=== PATIENT | female | born 1945 | race Caucasian/White ===

== ENCOUNTER 2020-01-07 10:29 | Outpatient (CLI) | payer MEDICARE, MEDICAID, SELFPAY ==
--- NOTE | ~2020-01-07 | MM_ITS ---
EXAMINATION: MM screening [facility] BI w daniel HISTORY: Screening mammogram TECHNIQUE: Craniocaudal and mediolateral oblique 3-D tomosynthesis images were obtained and synthetic 2-D images were generated. CAD analysis was submitted and interpreted. COMPARISON: 01/02/2019, 12/15/2017, 12/05/2016 BREAST PARENCHYMAL COMPOSITION: The breasts are heterogeneously dense, which may obscure small masses . FINDINGS: Scattered benign-appearing calcifications are present. There is no evidence of suspicious m ass, calcification, or architectural distortion to suggest malignancy in either breast. There has bee n no suspicious interval change. IMPRESSION: 1. No mammographic evidence of malignancy. 2. Recommend routine screening mammography in one year. BI-RADS Category 2: Benign finding(s). Reviewed, dictated and finalized at location A.
== END 2020-01-07 10:30 | disposition home or self-care (01) ==
PROVIDERS: PCP Family Medicine; Visit Provider Family Medicine
DX: Z12.31 Encounter for screening mammogram for malignant neoplasm of breast (principal)
CPT/HCPCS: 77063; 77067

== ENCOUNTER 2020-01-31 10:58 | Emergency (ER) | payer MEDICARE, MEDICAID, SELFPAY ==
--- NOTE | ~2020-01-31 | XR_ITS ---
EXAMINATION: XR chest 1V portable INDICATION: Right hemiparesis, confusion, nausea and vomiting TECHNIQUE: Portable AP chest at 1138 hours COMPARISON: None available FINDINGS: The lungs are hyperinflated but free of acute opacities. There is no pleural effusion or pn eumothorax. The heart size is normal. Calcified atherosclerosis is noted. 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 IMPRESSION: 1. Hyperinflation without acute cardiopulmonary abnormality. Reviewed, dictated and finalized at location B.
--- NOTE | ~2020-01-31 | CT_ITS ---
EXAMINATION: CT brain wo con INDICATION: Right-sided hemiparesis COMPARISON: None TECHNIQUE: Standard unenhanced head CT. The dose-length product (DLP) was 605.33 mGy-cm. The mA was a djusted according to patient size. Iterative reconstruction technique was employed. FINDINGS: There is no acute intraparenchymal hemorrhage. No evidence of mass lesion. No evidence of a cute infarction. There is mild periventricular and subcortical hypodensity probably related to small vessel ischemic disease. There is mild prominence of the sulci and ventricles related to cerebral atr ophy. Intracranial calcified cerebral atherosclerosis is noted. There are no extra-axial collections. There is no mass effect or midline shift. The orbits and soft tissues are unremarkable. The visuali zed sinuses and mastoid air cells are well aerated. IMPRESSION: 1. No acute intracranial abnormality. 2. Age related findings. Reviewed, dictated and finalized at location B.
[2020-01-31 11:02] VITALS: BP 213/101; PULSE 82; RESP 16; TEMP 37.1; O2SAT 95
--- NOTE | 2020-01-31 11:03 | ECG_ITS ---
Measurements Intervals [place] Rate: 72 P: 70 OH: 155 QRS: 30 QRSD: 96 T: 70 QT: 415 QTc: 457 Interpretive Statements SINUS RHYTHM NONSPECIFIC ST & T-WAVE ABNORMALITY- ANTEROLAT/HIGH LAT LEADS BASELINE WANDER- V2-V5 BORDERLINE ECG Electronically Signed On 01-31-2020 11:22:07 CDT by Jason Silverman D.O.
--- NOTE | 2020-01-31 11:14 | ED.WEAKNESS ---
HPI - Weakness General Chief complaint: Suspected CVA Stated complaint: Ambulance Time Seen by Provider: 01/31/20 10:58 Source: patient Mode of arrival: EMS Limitations: no limitations History of Present Illness HPI Narrative: 74-year-old woman brought to the emergency department by EMS today with a complaint of weakness on her right side. She states that her symptoms started 2 days ago. She was sitting when her symptoms started. She states that she has been crawling to the bathroom in the kitchen in order to get something to drink and relieve herself. She denies numbness, tingling, chest pain, shortness breath, headache or head injuries. She takes no prescription medications. MD Complaint: focal weakness Onset (ago): day(s) (2) Duration: constant Location: RUE and RLE Migration: none Severity: severe Relieving factors: none Exacerbating factors: none Related Data Home Medications Medication Instructions Recorded Confirmed calcium carbonate 600 mg (1,500 2 tablet PO DAILY tablet 12/31/19 01/31/20 mg)-vitamin D3 400 unit tablet Allergies Allergy/AdvReac Type Severity Reaction Status Date / Time No Known Allergies Allergy Verified 01/01/20 10:33 Review of Systems Constitutional: Constitutional: Denies chills and Denies fever(s) Eyes: Eyes: Denies change in vision and Denies photophobia ENT: Denies dysphagia, Denies nasal congestion and Denies sore throat Cardiovascular: Cardiovascular: Denies chest pain, Denies rapid heart rate, Denies radiating jaw, neck or arm pain and Denies slow heart rate Respiratory: Respiratory: Denies cough, Denies dyspnea and Denies wheezing Gastrointestinal: Gastrointestinal: Denies abdominal pain, Denies diarrhea, Denies nausea and Denies vomiting Genitourinary: Genitourinary: Denies nocturia and Denies dysuria Musculoskeletal: Musculoskeletal: Denies back pain, Denies arthralgias and Denies joint swelling Integumentary/Breasts: Skin/Breast: Denies pruritus, Denies erythema and Denies rash Neurologic: Denies vertigo, Denies dizziness, Denies syncope, Denies headache(s), Reports focal weakness and Denies numbness Endocrine: Endocrine: Denies excessive sweating, Denies polydipsia and Denies polyuria Hematologic/Lymphatic: Hematologic/Lymphatic: Denies easy bleeding and Denies easy bruising Allergic/Immunologic: Allergic/Immunologic: Denies lip swelling, Denies tongue swelling and Denies wheezing PMFSH Past Medical History Medical History Osteoporosis Surgical History Surgical History Hx of cataract surgery Hx of hysterectomy Social History Social History Smoking packs per day: 1 Smoking cigarettes per day: 20.0 Years smoked: 32 Smoking pack-years: 32.00 Smoking status: Former smoker Smoking end date: 06/26/91 Exam Const: General: healthy appearing, no acute distress and alert Nutritional Appearance: well nourished Orientation/consciousness: patient oriented x3 HENMT: Head: normal to inspection Ears: external ears normal, TM's normal bilaterally and EAC's normal General nose exam: Normal nares present Mouth: Yes moist mucous membranes Throat: posterior oropharynx normal Eyes: Conjunctivae: conjunctivae normal Pupils: Equal, round and reactive pupils present EOM: EOMs intact bilaterally Neck: Neck: normal visual inspection and no lymphadenopathy Resp: Effort & Inspection: normal respiratory effort and not labored Auscultation: clear to auscultation bilaterally, no rales, no rhonchi and no wheezes Cardio: Rate: abnormal rate Rhythm: abnormal rhythm GI: Inspection: non-distended GI Palp: Yes Soft to palpation, No Tenderness to palpation present (GI), No Guarding due to palpation present (GI), No Rigid due to palpation and No Palpable mass present Percussion: Yes normal to pe
[2020-01-31 11:43] LABS: Glucose Point of Care 95 (65-105)
[2020-01-31 11:56] LABS: Basophils Absolute Auto 0.04 K/mm3 (0.00-0.10); Basophils Percent Auto 0.5 % (0.0-1.0); Eosinophils Absolute Auto 0.01 K/mm3 (0.02-0.50); Eosinophils Percent Auto 0.1 % (1.0-6.0); Hematocrit 43.3 % (35.0-42.0); Hemoglobin 14.8 g/dL (11.7-13.8); Immature Granulocyte Absolute 0.02 K/mm3 (0.00-0.00); Immature Granulocyte Percent A 0.2 % (0.0-0.0); Lymphocytes Percent Auto 13.6 % (18.0-42.0); Mean Corpuscular HGB Conc 34.2 g/dL (32.0-36.0); Mean Corpuscular Hemoglobin 29.7 pg (27.0-31.0); Mean Corpuscular Volume 86.8 fL (78.0-102.0); Mean Platelet Volume 8.5 fl (9.2-11.8); Monocytes Absolute Auto 0.62 K/mm3 (0.10-0.90); Monocytes Percent Auto 7.7 % (2.0-11.0); Neutrophils Absolute Auto 6.3 K/mm3 (1.7-7.2); Neutrophils Percent Auto 77.9 % (50.0-70.0); Platelet Count Result 224 K/mm3 (150-420); Red Blood Count 4.99 M/mm3 (4.20-5.40); Red Cell Distribution Width 12.7 % (11.6-14.4); White Blood Count 8.1 K/mm3 (4.8-10.8)
[2020-01-31 12:00] VITALS: BP 169/94; PULSE 78; RESP 20; O2SAT 97
[2020-01-31 12:00] LABS: Add Urine Microscopic? YES; Appearance Urine Clear (Clear); Bilirubin Urine Negative (Negative); Blood Urine 2+ (Negative); Color Urine Yellow (Yellow); Glucose Urine UA Negative (Negative); Ketones Urine 1+ (Negative); Leukocyte Esterase Ur Negative LEU/UL (Negative); Nitrate Urine Negative (Negative); Protein Urine 1+ (Negative); Urobilinogen Urine 0.2 mg/dL (0.2-1.0)
[2020-01-31 12:08] LABS: Bacteria Urine 1+ /hpf; Squamous Epithelial Cell Urine Few /hpf (Few); WBC Urine None seen /hpf (0-3)
[2020-01-31 12:11] LABS: Amphetamine Screen Urine Negative (Negative); Barbiturate Screen Urine Negative (Negative); Benzodiazepines Screen Urine Negative (Negative); Cannabinoid Screen Urine Negative (Negative); Cocaine Screen Urine Negative (Negative); Methadone Screen Urine Negative (Negative); Opiate Screen Urine Negative (Negative); Phencyclidine Screen Urine Negative (Negative)
[2020-01-31 12:17] LABS: Alanine Aminotransferase 17 U/L (14-59); Albumin Level 3.8 g/dL (3.4-5.0); Alkaline Phosphatase 64 U/L (46-116); Anion Gap 15.3 mmol/L (7-16); Aspartate Amino Transferase 17 U/L (15-37); Bilirubin,Total 0.9 mg/dL (0.00-1.00); Blood Urea Nitrogen 9 mg/dL (7-18); Carbon Dioxide 24 mmol/L (21-32); Chloride 102 mmol/L (98-108); Estimated CRCL calculation 44 ml/min; Estimated Glomerular Filt Rate > 60; Glucose 106 mg/dL (70-99); Osmolality Calculated 284 mOsm/kg (285-295); Potassium 3.3 mmol/L (3.5-5.1); Sodium 138 mmol/L (136-145); Total Protein 7.7 g/dL (6.4-8.2)
[2020-01-31 12:18] LABS: Ethanol < 3 mg/dL (0-6); Troponin I < 0.02 ng/mL (0.00-0.056)
[2020-01-31 12:19] LABS: Creatine Kinase 124 U/L (26-192)
[2020-01-31 12:23] LABS: Partial Thromboplastin Time 28.8 SEC (22.3-31.6)
--- NOTE | 2020-01-31 12:41 | PC.NURSE ---
Pt requests [facility] for transfer. [facility] contacted.
[2020-01-31] MEDS: SODIUM CHLORIDE 0.9% IV 500 ML 999 ML IV CONT (13:10)
[2020-01-31] MEDS: ONDANSETRON INJ 4 MG/2 ML VIAL IV PUSH (13:18)
--- NOTE | 2020-01-31 13:27 | PC.NURSE ---
Pt asked multiple times if she would like this RN to contact her family. pt declines and states that she will call her daughter when she gets to [place].
--- NOTE | 2020-01-31 13:30 | PC.NURSE ---
Dr. Cerda accepts pt, awaiting bed assignment. pt aware.
[2020-01-31 13:49] VITALS: BP 148/84; PULSE 80; RESP 16; O2SAT 95
--- NOTE | 2020-01-31 14:35 | PC.NURSE ---
[facility] contacted for transfer
[2020-01-31 14:38] VITALS: BP 140/69; PULSE 88; RESP 18; O2SAT 95
[2020-01-31 15:02] VITALS: BP 146/90; PULSE 77; RESP 18; O2SAT 95
== END 2020-01-31 15:24 | disposition short-term general hospital (02) ==
PROVIDERS: Emergency Provider Emergency Medicine
DX: I63.9 Cerebral infarction, unspecified (principal); Z87.891 Personal history of nicotine dependence; M81.0 Age-related osteoporosis without current pathological fracture
CPT/HCPCS: 36415; 70450; 71045; 80053; 80307; 81001; 82550; 82948; 84484; 85025; 85610; 85730; 93005; 96374; 99285; J2405; J7040

== ENCOUNTER 2020-02-28 15:05 | Inpatient (IN) | payer MEDICARE, MEDICAID, SELFPAY ==
--- NOTE | ~2020-02-28 | XR_ITS ---
EXAMINATION: XR barium swallow modified DATE: 03/06/2020 10:44 INDICATION: CVA with difficulty swallowing TECHNIQUE: Modified barium esophagram was performed by myself to administered fluoroscopy, in conjun ction with speech pathologist who administered barium in varying consistencies as per speech patholog ist documentation. This was recorded on tape. A single fluoroscopic spot image was recorded. The DAP for this procedure was 0.871 Gycm2. Fluoroscopy exposure time was 1.5 minutes. FINDINGS: Oral stage: Adequate function. Pharyngeal phase: Adequate function. Laryngeal penetration: Penetration with camille cracker. Aspiration: None. Laryngeal sensitivity: Present. IMPRESSION: Laryngeal penetration with camille cracker. Please refer to speech pathologist findings a nd specific feeding recommendations. Reviewed, dictated and finalized at location B. IMPRESSION: Laryngeal penetration with camille cracker. Please refer to speech pathologist findings and specific feeding recommendations.
[2020-02-28 15:15] VITALS: BP 146/65; PULSE 68; RESP 18; TEMP 36.6; O2SAT 97; BMI 19.9
--- NOTE | 2020-02-28 15:15 | ADMGEN ---
This patient, Fannie Izquierdo, was admitted to 2nd Floor Room 203-2. Patient/family oriented to hospital policies and general routines including ID bracelet, bed and alarms, visiting hours, pain management, procedures, bathroom and other care routines, personal items, smoking policy, room service/diet, and visiting hours. Valuables list has been completed. Information on how to activate the Rapid Response Team has been discussed. Patient/Family are encouraged to report perceived risks to care and to ask questions if they do not understand what they are told or what they should do.
[2020-02-28 16:57] LABS: Hematocrit 37.8 % (35.0-42.0); Hemoglobin 12.1 g/dL (11.7-13.8); Mean Corpuscular Hemoglobin 29.4 pg (27.0-31.0); Mean Corpuscular Volume 91.7 fL (78.0-102.0); Mean Platelet Volume 8.5 fl (9.2-11.8); Platelet Count Result 298 K/mm3 (150-420); Red Blood Count 4.12 M/mm3 (4.20-5.40); Red Cell Distribution Width 13.9 % (11.6-14.4); White Blood Count 8.2 K/mm3 (4.8-10.8)
[2020-02-28 16:58] LABS: Alanine Aminotransferase 27 U/L (14-59); Albumin Level 3.3 g/dL (3.4-5.0); Alkaline Phosphatase 75 U/L (46-116); Anion Gap 5 mmol/L (8-16); Aspartate Amino Transferase 20 U/L (15-37); Bilirubin,Total 0.5 mg/dL (0.00-1.00); Blood Urea Nitrogen 26 mg/dL (7-18); Calcium 9.5 mg/dL (8.5-10.1); Carbon Dioxide 29 mmol/L (21-32); Chloride 104 mmol/L (98-108); Estimated CRCL calculation 40 ml/min; Estimated Glomerular Filt Rate > 60; Glucose 104 mg/dL (70-99); Osmolality Calculated 290 mOsm/kg (285-295); Potassium 3.9 mmol/L (3.5-5.1); Sodium 138 mmol/L (136-145); Total Protein 7.4 g/dL (6.4-8.2)
[2020-02-29] VITALS: BP 130/72; PULSE 72; RESP 20; TEMP 36.6; O2SAT 94
--- NOTE | 2020-02-29 07:40 | PM.IMHP ---
H&P: HPI History of Present Illness Date/Time: 02/29/20 07:40 Chief complaint: Rehab Narrative: Fannie Izquierdo is a 74 year old female.She was admitted to [facility] on 01/31/2020 symptoms started 2 days prior. patient presented at that time with right-sided weakness hemiparesis evaluation show left pontine area infarct. Patient was put on PT OT and ST. Patient is now transferred to this facility for rehabilitation of the CVA were she will continue to receive work with PT OT and ST. Review of Systems Review of Systems: Narrative: Patient states she is able to eat and swallow well and that she has not been choking or gagging on her food. Patient explains that she does have a right arm weakness and right leg weakness. Patient has no complaints for the following: Visual disturbances, hearing disturbances, no shortness of breath no increased work of breathing, no chest pain, no abdominal problems, no numbness or tingling. Patient also states she is having no pain at this time. Cardiovascular: Cardiovascular: Denies chest pain, Denies lightheadedness and Denies dyspnea Respiratory: Respiratory: Denies excessive phlegm production, Denies pain on inspiration, Denies pain with cough and Denies dyspnea Gastrointestinal: Gastrointestinal: Denies abdominal pain, Denies nausea and Denies vomiting Musculoskeletal: Comments: As noted above. Neurologic: Denies confusion, Denies dizziness, Denies headache(s) and Reports focal weakness (As noted above.) [facility] Past Medical History Medical History (Updated 02/29/20 @ 11:20 by CYNTHIA Dougherty) CVA (cerebral vascular accident) Hyperlipidemia Hypertension Osteoporosis Surgical History Surgical History Hx of cataract surgery Hx of hysterectomy Social History Social History Smoking packs per day: 0.25 Smoking cigarettes per day: 5.0 Years smoked: 30 Smoking pack-years: 7.50 Smoking status: Former smoker Tobacco type: cigarettes Smoking end date: 06/26/91 Alcohol intake: never Substance use: never Gender identity (if verbalized by the patient): Female Sexual Orientation (if Verbalized by the Patient): Straight or Heterosexual Spiritual care concerns: No Meds Home Medications and Allergies Home Medications Medication Instructions Recorded Confirmed Type acetaminophen 650 mg PO Q4H PRN 02/28/20 02/28/20 History alendronate 10 mg PO QAM 02/28/20 02/28/20 History amlodipine 2.5 mg PO DAILY 02/28/20 02/28/20 History aspirin 325 mg PO DAILY 02/28/20 02/28/20 History atorvastatin 40 mg PO HS 02/28/20 02/28/20 History bisacodyl 10 mg [place] QPM PRN 02/28/20 02/28/20 History polyethylene glycol 3350 17 g PO DAILY PRN 02/28/20 02/28/20 History sennosides-docusate sodium [Senna 2 tab-cap PO HS 02/28/20 02/28/20 History with Docusate Sodium] Allergies Allergy/AdvReac Type Severity Reaction Status Date / Time No Known Allergies Allergy Verified 01/01/20 10:33 Vital Signs Vital Signs - 24 hr 02/28/20 15:15 02/29/20 00:00 Temperature 98 F 98 F Pulse Rate 68 72 Respiratory Rate 18 20 Blood Pressure 146/65 H 130/72 Pulse Oximetry 97 94 Exam Const: General: cooperative, healthy appearing, comfortable and no acute distress Nutritional Appearance: thin Orientation/consciousness: oriented to person, oriented to place and oriented to time (And events. ) HENMT: Head: other (No facial droop, speech is clear. ) Resp: Effort & Inspection: normal respiratory effort, Actively coughing (has a bit of a weak cough.), no respiratory distress and no retractions Auscultation: rales (in the bases posteriorly with Rt > Lt. ) Cardio: Rate: regular rate Rhythm: regular rhythm Heart sounds: S1 normal heart sound present and S2 normal heart sound present GI: Inspection: non-distended GI Palp: No abdominal tenderness and Yes Soft to pa
[2020-02-29 08:00] VITALS: BP 119/67; PULSE 68; RESP 18; TEMP 36.5; O2SAT 97
[2020-02-29] MEDS: amLODIPine BESYLATE 5 MG TABLET 2.5 MG PO (08:59)
[2020-02-29] MEDS: ASPIRIN 325 MG ENTERIC TABLET PO (08:59)
[2020-02-29] MEDS: ENOXAPARIN 40 MG/0.4 ML SYRINGE SUB-Q (12:49)
[2020-02-29 15:23] VITALS: BP 146/72; PULSE 73; RESP 18; TEMP 37.3; O2SAT 94
--- NOTE | 2020-02-29 15:25 | PC.NURSE ---
Denies needs, patient put on splint on right wrist/hand, keeping blankets behind right foot to prevent drop until she can get a brace for her foot as recommended by PT dept, call light in reach
--- NOTE | 2020-02-29 17:30 | PC.NURSE ---
Up from chair with use of gait belt and walker, tolerated well, back to bed, side rails up and call light inr each of patient
--- NOTE | 2020-02-29 18:16 | PC.NURSE ---
Up to commode with SBA, tolerated well, back to bed
--- NOTE | 2020-02-29 19:26 | PM.IMHP ---
H&P: HPI History of Present Illness Date/Time: 02/29/20 19:26 Chief complaint: Rehab Narrative: Fannie Izquierdo is a 74 year old female admitted to our rehab/swing center after she was at [facility] early January for a right-sided weakness which was diagnosed with with CVA involving the amirah norberto area. The patient had right-sided weakness status post CVA. Patient admitted to our hospital with some PT/OT/ speech therapy ordered. Patient has a history of hypertension, hyperlipidemia, osteoporosis. Currently on honey thickened liquids and will need a modified barium swallow for swallow evaluation. Review of Systems Review of Systems: All systems reviewed & are unremarkable except as noted in HPI and below PMFSH Past Medical History Medical History CVA (cerebral vascular accident) Hyperlipidemia Hypertension Osteoporosis Surgical History Surgical History Hx of cataract surgery Hx of hysterectomy Family History Family History Father Family history of dementia Social History Social History Smoking packs per day: 0.25 Smoking cigarettes per day: 5.0 Years smoked: 30 Smoking pack-years: 7.50 Smoking status: Former smoker Tobacco type: cigarettes Smoking end date: 06/26/91 Alcohol intake: never Substance use: never Gender identity (if verbalized by the patient): Female Sexual Orientation (if Verbalized by the Patient): Straight or Heterosexual Spiritual care concerns: No Meds Home Medications and Allergies Home Medications Medication Instructions Recorded Confirmed Type acetaminophen 650 mg PO Q4H PRN 02/28/20 02/28/20 History alendronate 10 mg PO QAM 02/28/20 02/28/20 History amlodipine 2.5 mg PO DAILY 02/28/20 02/28/20 History aspirin 325 mg PO DAILY 02/28/20 02/28/20 History atorvastatin 40 mg PO HS 02/28/20 02/28/20 History bisacodyl 10 mg [place] QPM PRN 02/28/20 02/28/20 History polyethylene glycol 3350 17 g PO DAILY PRN 02/28/20 02/28/20 History sennosides-docusate sodium [Senna 2 tab-cap PO HS 02/28/20 02/28/20 History with Docusate Sodium] Allergies Allergy/AdvReac Type Severity Reaction Status Date / Time No Known Allergies Allergy Verified 01/01/20 10:33 Vital Signs Vital Signs - 24 hr 02/29/20 00:00 02/29/20 08:00 02/29/20 15:23 Temperature 36.6 C 36.5 C 37.3 C Pulse Rate 72 68 73 Respiratory Rate 20 18 18 Blood Pressure 130/72 119/67 146/72 H Pulse Oximetry 94 97 94 Exam Const: General: comfortable and no acute distress HENMT: Ears: TM's normal bilaterally Eyes: General: appearance normal, both eyes and all related structures Neck: Neck: supple and no JVD Thyroid: thyroid normal Resp: Effort & Inspection: normal respiratory effort Auscultation: clear to auscultation bilaterally Cardio: Rate: regular rate Rhythm: regular rhythm Skin: General skin exam: normal color and no rashes or lesions noted Neuro: Cognition (Neuro): normal cognition Speech: normal speech Motor exam (neuro): Normal motor muscle tone present throughout Other: Weakness right-sided Extrem: General: normal to inspection Left upper extremity: normal to inspection Right lower extremity: normal to inspection Left lower extremity: normal to inspection
[2020-02-29] MEDS: ATORVASTATIN 40 MG TABLET PO (21:04)
[2020-02-29] MEDS: SENNA/DOCUSATE SODIUM TABLET 2 TAB PO (21:04)
--- NOTE | 2020-02-29 21:20 | PC.NURSE ---
thickened liquid continue, continue to observe for aspiration precautions.
[2020-03-01] VITALS: BP 127/60; PULSE 71; RESP 12; TEMP 36.8; O2SAT 94
[2020-03-01 08:00] VITALS: BP 140/59; PULSE 64; RESP 18; TEMP 36.7; O2SAT 96
[2020-03-01] MEDS: ENOXAPARIN 40 MG/0.4 ML SYRINGE SUB-Q (08:49)
[2020-03-01] MEDS: ALENDRONATE SODIUM 70 MG TABLET PO (08:49)
[2020-03-01] MEDS: amLODIPine BESYLATE 5 MG TABLET 2.5 MG PO (08:49)
[2020-03-01] MEDS: ASPIRIN 325 MG ENTERIC TABLET PO (08:49)
[2020-03-01 16:00] VITALS: BP 130/63; PULSE 66; RESP 18; TEMP 36.7; O2SAT 97
[2020-03-01] MEDS: SENNA/DOCUSATE SODIUM TABLET 2 TAB PO (19:59)
[2020-03-01] MEDS: ATORVASTATIN 40 MG TABLET PO (19:59)
[2020-03-02] VITALS: BP 133/66; PULSE 66; RESP 16; TEMP 36.6; O2SAT 94
[2020-03-02 07:25] VITALS: BP 175/61; PULSE 66; RESP 18; TEMP 36.8; O2SAT 97
[2020-03-02] MEDS: ASPIRIN 325 MG ENTERIC TABLET PO (09:40)
[2020-03-02] MEDS: ENOXAPARIN 40 MG/0.4 ML SYRINGE SUB-Q (09:40)
[2020-03-02] MEDS: amLODIPine BESYLATE 5 MG TABLET 2.5 MG PO (09:40)
--- NOTE | 2020-03-02 11:24 | WPDPN ---
Progress Note: A&P Assessment and Plan (1) CVA (cerebrovascular accident): Qualifiers: CVA mechanism: unspecified Qualified Code(s): I63.9 - Cerebral infarction, unspecified <SHAMEKA Perez - Last Filed: 03/02/20 11:47> Code(s): I63.9 - Cerebral infarction, unspecified <Jessica Najera SHAMEKA - Last Filed: 03/02/20 11:47> Status: Acute <SHAMEKA Perez - Last Filed: 03/02/20 11:47> Assessment and Plan: No acute intracranial abnormality.01/31/20 ekg SR 72 DC lovneox continue plavix 75 mg daily,ASA 365 mg daily, atorvastatin 40mg daily Continue nectar thick liquid MBS ordered and pending Continue physical therapy and Occupational Therapy <Jessica Najera SHAMEKA - Last Filed: 03/02/20 11:47> (2) Hypertension: Code(s): I10 - Essential (primary) hypertension <Jessica Najera SHAMEKA - Last Filed: 03/02/20 11:47> Status: Acute <Jessica Najera SHAMEKA - Last Filed: 03/02/20 11:47> Assessment and Plan: ? Patient blood pressure 175/61 one-time occurrence we will continue to monitor and adjust as needed ? VS as ordered ? Will adjust medication as needed. Continue amlodipine <Jessica Najera SHAMEKA - Last Filed: 03/02/20 11:47> (3) Hyperlipidemia: Code(s): E78.5 - Hyperlipidemia, unspecified <Jessica Najera SHAMEKA - Last Filed: 03/02/20 11:47> Status: Acute <Jessica Najera SHAMEKA - Last Filed: 03/02/20 11:47> Assessment and Plan: Continue statins <Jessica Najera SARAMina - Last Filed: 03/02/20 11:47> (4) Rhonchi at both lung bases: Code(s): R09.89 - Other specified symptoms and signs involving the circulatory and respiratory systems <Jessica CastañedaHeather Najera SARAMina - Last Filed: 03/02/20 11:47> Status: Acute <SHAMEKA Perez - Last Filed: 03/02/20 11:47> Assessment and Plan: Improved Continue acapella Continue as needed oxygen Will continue to monitor <SHAMEKA Perez - Last Filed: 03/02/20 11:47> (5) Weakness: Code(s): R53.1 - Weakness <SHAMEKA Perez Last Filed: 03/02/20 11:47> Status: Acute <SHAMEKA Perez - Last Filed: 03/02/20 11:47> Assessment and Plan: ? Exhibit tolerance during physical activity as evidenced by a normal fluctuation of vital signs during physical activity. ? Patient will be ability to perform required activities of daily living. ? Provide appropriate nutrition for healing and strength. ? Use appropriate to prevent falls. ? Continue physical therapy/occupational therapy. <SHAMEKA Perez - Last Filed: 03/02/20 11:47> Review of Systems Review of Systems: Narrative: CONSTITUTIONAL: Denies fever, chills, sweats. EYES: Denies visual changes, redness, discharge. ENT: Denies rhinorrhea, congestion, sore throat, otalgia. CARDIOVASCULAR: Denies chest pain, palpitations, edema. RESPIRATORY: Denies dyspnea, wheezing, cough GASTROINTESTINAL: Denies abdominal pain, nausea, vomiting, diarrhea. GENITOURINARY: Denies dysuria, hematuria, abnormal discharge SKIN: Denies rash or itching. MUSCULOSKELETAL: Denies acute back pain, or myalgia. Left arm pain NEUROLOGIC: Left-sided weakness PSYCHIATRIC: Denies anxiety or depression. <SHAMEKA Perez - Last Filed: 03/02/20 11:47> Exam Narrative: Exam Narrative: GENERAL: This is a well-nourished, well-developed patient, in no apparent distress. HEAD: normocephalic, atraumatic. EYES: PERRL. Sclera clear/white. Vision is grossly intact. EARS: External ears normal, auditory canals clear and without drainage, TMs normal without perforation. Hearing grossly intact. NOSE: External nose normal with no obvious nasal discharge, nares without redness, no rhinorrhea. THROAT: Mucous membranes moist, posterior pharynx clear. NECK: Neck supple, non-tender without lymphadenopathy, masses or thyromegaly.
[2020-03-02 12:09] VITALS: PULSE 74
--- NOTE | 2020-03-02 14:30 | PC.NURSE ---
Patient resting in bed with hob elevated. Call light and belongings at side. Denies any needs at this time.
[2020-03-02 15:45] VITALS: BP 122/68; PULSE 74; RESP 18; TEMP 37; O2SAT 95
[2020-03-02] MEDS: DOCUSATE SODIUM 100 MG CAPSULE PO (16:40)
--- NOTE | 2020-03-02 18:20 | PC.NURSE ---
Patient resting in bed with hob elevated. Call light provided.
[2020-03-02] MEDS: ATORVASTATIN 40 MG TABLET PO (20:43)
[2020-03-02] MEDS: SENNA/DOCUSATE SODIUM TABLET 2 TAB PO (20:43)
[2020-03-03] VITALS: BP 133/74; PULSE 74; RESP 18; TEMP 36.7; O2SAT 98
[2020-03-03 07:20] VITALS: BP 126/77; PULSE 74; RESP 18; TEMP 36.6; O2SAT 95
[2020-03-03] MEDS: amLODIPine BESYLATE 5 MG TABLET 2.5 MG PO (10:02)
[2020-03-03] MEDS: ASPIRIN 325 MG ENTERIC TABLET PO (10:02)
[2020-03-03] MEDS: CLOPIDOGREL BISULFATE 75 MG TABLET PO (10:02)
[2020-03-03] MEDS: DOCUSATE SODIUM 100 MG CAPSULE PO ×2 (10:02→17:10)
--- NOTE | 2020-03-03 15:28 | PCRCNOTE ---
Instructed patient in use and purpose of Flutter Valve. Patient very receptive. Able to demonstrate & perform procedure without difficulty. Breath Sounds with bibasilar crackles, more pronounced in RLL. Patient performed 5-10 respiratory cycles using the Flutter Valve appropriately. Non- productive cough. Good cough effort. Patient states she is now using thickening product for liquids.
[2020-03-03 15:45] VITALS: BP 122/73; PULSE 78; RESP 18; TEMP 37.1; O2SAT 95
[2020-03-03] MEDS: polyethylene glycoL 3350 17 GM POWD.PACK PO (16:00)
--- NOTE | 2020-03-03 18:10 | PC.NURSE ---
Patient resting in bed with hob elevated. Denies any needs. Call light and belongings in reach.
[2020-03-03] MEDS: SENNA/DOCUSATE SODIUM TABLET 2 TAB PO (20:05)
[2020-03-03] MEDS: ATORVASTATIN 40 MG TABLET PO (20:05)
[2020-03-03] MEDS: BISACODYL 10 MG SUPPOSITORY RECTAL (20:06)
[2020-03-03 23:50] VITALS: BP 128/68; PULSE 76; RESP 18; TEMP 36.8; O2SAT 94
--- NOTE | 2020-03-04 02:31 | PC.NURSE ---
Addendum entered by Deborah Saeed RN 03/04/20 02:32: no evidence of distress noted at this time Original Note: pt sleeping, no evidence noted at this time
[2020-03-04 05:00] VITALS: O2SAT 94
--- NOTE | 2020-03-04 07:00 | PC.NURSE ---
Up from bed, used walker to get from bed to BSC, side step to chair, tolerated well,SBA only, gait belt also used, arms padded with pillows and legs elevated at this time
[2020-03-04 07:20] VITALS: BP 124/61; PULSE 68; RESP 18; TEMP 36.9; O2SAT 97
--- NOTE | 2020-03-04 09:45 | PC.NURSE ---
Taken via wheel chair to therapy
--- NOTE | 2020-03-04 10:15 | PC.NURSE ---
Returned from therapy, to bed
[2020-03-04] MEDS: amLODIPine BESYLATE 5 MG TABLET 2.5 MG PO (10:16)
[2020-03-04] MEDS: ASPIRIN 325 MG ENTERIC TABLET PO (10:18)
[2020-03-04] MEDS: DOCUSATE SODIUM 100 MG CAPSULE PO ×2 (10:18→17:02)
[2020-03-04] MEDS: CLOPIDOGREL BISULFATE 75 MG TABLET PO (10:18)
--- NOTE | 2020-03-04 11:00 | PC.NURSE ---
Up from bed to commode then to chair, gait belt used and used edge of furniture to make it from BSC to chair, legs down
[2020-03-04] MEDS: CALCIUM CARBONATE (OSCAL) 500 MG TABLET 250 MG PO (12:58)
[2020-03-04] MEDS: CHOLECALCIFEROL 400 UNITS TABLET (VIT D) PO (12:59)
[2020-03-04 15:37] VITALS: BP 119/56; PULSE 78; RESP 18; TEMP 36.9; O2SAT 94
--- NOTE | 2020-03-04 15:40 | PC.NURSE ---
States feeling tired from all therapy sessions today, resting in bed at this time
--- NOTE | 2020-03-04 16:58 | PC.NURSE ---
Up in chair and eating dinner, denies needs
--- NOTE | 2020-03-04 17:35 | PC.NURSE ---
Contact guard assist when standing, some imbalance noted, able to use walker and get to bed, pillows/blanket roll to bottom of bed for feet, call light in reach of left hand, side rails up for safety
--- NOTE | 2020-03-04 18:29 | PC.NURSE ---
IN bed, resting quietly, personal items in reach
[2020-03-04] MEDS: SENNA/DOCUSATE SODIUM TABLET 2 TAB PO (20:27)
[2020-03-04] MEDS: ATORVASTATIN 40 MG TABLET PO (20:28)
[2020-03-04 23:33] VITALS: BP 123/61; PULSE 70; RESP 20; TEMP 36.6; O2SAT 95
[2020-03-05 07:15] VITALS: BP 125/55; PULSE 72; RESP 18; TEMP 35.9; O2SAT 96
[2020-03-05] MEDS: CLOPIDOGREL BISULFATE 75 MG TABLET PO (08:14)
[2020-03-05] MEDS: amLODIPine BESYLATE 5 MG TABLET 2.5 MG PO (08:14)
[2020-03-05] MEDS: ASPIRIN 325 MG ENTERIC TABLET PO (08:14)
[2020-03-05] MEDS: DOCUSATE SODIUM 100 MG CAPSULE PO ×2 (08:14→17:15)
[2020-03-05] MEDS: CALCIUM CARBONATE (OSCAL) 500 MG TABLET PO (08:36)
[2020-03-05] MEDS: CHOLECALCIFEROL 400 UNITS TABLET (VIT D) PO (08:36)
[2020-03-05 16:00] VITALS: BP 124/59; PULSE 72; RESP 18; TEMP 36.6; O2SAT 98
[2020-03-05] MEDS: polyethylene glycoL 3350 17 GM POWD.PACK PO (20:12)
[2020-03-05] MEDS: ATORVASTATIN 40 MG TABLET PO (20:12)
[2020-03-05] MEDS: SENNA/DOCUSATE SODIUM TABLET 2 TAB PO (20:12)
[2020-03-05 22:43] VITALS: BP 128/73; PULSE 67; RESP 18; TEMP 37.1; O2SAT 96
[2020-03-06 07:30] VITALS: BP 128/60; PULSE 69; RESP 18; TEMP 36.6; O2SAT 96
--- NOTE | 2020-03-06 09:15 | PC.NURSE ---
OT in to see patient then take to PT department then to imaging for barium swallow to be done at 10 am
--- NOTE | 2020-03-06 09:27 | PC.NURSE ---
To therapy via WC
--- NOTE | 2020-03-06 10:35 | PC.NURSE ---
REturned from, imaging, no restrictions for diet at this time, am meds given
[2020-03-06] MEDS: CHOLECALCIFEROL 400 UNITS TABLET (VIT D) PO (10:39)
[2020-03-06] MEDS: CLOPIDOGREL BISULFATE 75 MG TABLET PO (10:39)
[2020-03-06] MEDS: ASPIRIN 325 MG ENTERIC TABLET PO (10:39)
[2020-03-06] MEDS: amLODIPine BESYLATE 5 MG TABLET 2.5 MG PO (10:39)
[2020-03-06] MEDS: CALCIUM CARBONATE (OSCAL) 500 MG TABLET 250 MG PO (10:40)
[2020-03-06] MEDS: DOCUSATE SODIUM 100 MG CAPSULE PO ×2 (10:40→16:37)
--- NOTE | 2020-03-06 11:39 | PC.NURSE ---
Up from bed to sitting position, no assist needed, gait belt applied, stood on own, wobbly at first, walked with walker and contact guard assist to chair for lunch, personal items and call light in reach of patient
--- NOTE | 2020-03-06 13:08 | PCSTNOTE ---
Please refer to the Modified Barium Swallow Evaluation in the EMR.
--- NOTE | 2020-03-06 14:05 | PC.NURSE ---
To therapy via wheel chair
--- NOTE | 2020-03-06 15:00 | PC.NURSE ---
Returned from therapy, to bed with HOB elevated, denies needs
[2020-03-06 16:00] VITALS: BP 121/59; PULSE 79; RESP 18; TEMP 36.9; O2SAT 95
--- NOTE | 2020-03-06 18:00 | PC.NURSE ---
Up from dinner, changed in to bed gown, side rails up and call light in reach of pateint
[2020-03-06] MEDS: SENNA/DOCUSATE SODIUM TABLET 2 TAB PO (20:36)
[2020-03-06] MEDS: ATORVASTATIN 40 MG TABLET PO (20:36)
--- NOTE | 2020-03-06 21:45 | PC.NURSE ---
Foot rail engaged per patient request; states she is afraid she will fall out of bed when lying on side. No signs of pain or discomfort.
[2020-03-07] VITALS: BP 128/68; PULSE 66; RESP 20; TEMP 37.1; O2SAT 95
--- NOTE | 2020-03-07 01:30 | PC.NURSE ---
Lying in bed, awake and watching T.V. No distress noted.
--- NOTE | 2020-03-07 06:06 | PC.NURSE ---
Watching T.V. states would like to get up at 0700 for breakfast. No pain or distress noted. Continues with right sided weakness. Given fresh ice water. Not using oxygen.
[2020-03-07 07:24] VITALS: BP 120/60; PULSE 70; RESP 18; TEMP 36.9; O2SAT 95
--- NOTE | 2020-03-07 07:28 | PC.NURSE ---
Assisted up to chair with use of gait belt and walker for breakfast, assist for balance, can move independent, right side weakness causes balance to be off
[2020-03-07] MEDS: DOCUSATE SODIUM 100 MG CAPSULE PO ×2 (09:03→17:21)
[2020-03-07] MEDS: ASPIRIN 325 MG ENTERIC TABLET PO (09:03)
[2020-03-07] MEDS: CHOLECALCIFEROL 400 UNITS TABLET (VIT D) PO (09:03)
[2020-03-07] MEDS: CLOPIDOGREL BISULFATE 75 MG TABLET PO (09:04)
[2020-03-07] MEDS: CALCIUM CARBONATE (OSCAL) 500 MG TABLET 250 MG PO (09:04)
[2020-03-07] MEDS: amLODIPine BESYLATE 5 MG TABLET 2.5 MG PO (09:04)
--- NOTE | 2020-03-07 10:03 | PC.NURSE ---
up to void, gait belt and walker used, did not take any assist to stand, SBA while walking to bathroom, voided and back to bed, tolerated well, able to get self positioned in bed with minimal assist
--- NOTE | 2020-03-07 11:08 | PC.NURSE ---
ambulated from bed to chair, tolerated well, slightly off balance to start, gait belt and walker used with stand by assist
--- NOTE | 2020-03-07 14:48 | PC.NURSE ---
Up in cano for walk with gait belt and stand by assist, tolerated well
[2020-03-07 15:27] VITALS: BP 134/56; PULSE 66; RESP 18; TEMP 36.8; O2SAT 98
[2020-03-07] MEDS: BISACODYL 10 MG SUPPOSITORY RECTAL (17:22)
--- NOTE | 2020-03-07 17:25 | PC.NURSE ---
dulcolax suppository given for constipation
--- NOTE | 2020-03-07 17:59 | PC.NURSE ---
Up to bathroom, no results at this time, was able to wipe own bottom at this time
[2020-03-07] MEDS: ATORVASTATIN 40 MG TABLET PO (20:45)
[2020-03-07] MEDS: SENNA/DOCUSATE SODIUM TABLET 2 TAB PO (20:46)
[2020-03-07 23:43] VITALS: BP 131/54; PULSE 68; RESP 18; TEMP 37.1; O2SAT 96
[2020-03-08 07:32] VITALS: BP 132/57; PULSE 66; RESP 18; TEMP 36.6; O2SAT 96
[2020-03-08] MEDS: amLODIPine BESYLATE 5 MG TABLET 2.5 MG PO (08:19)
[2020-03-08] MEDS: CALCIUM CARBONATE (OSCAL) 500 MG TABLET 250 MG PO (08:19)
[2020-03-08] MEDS: CLOPIDOGREL BISULFATE 75 MG TABLET PO (08:20)
[2020-03-08] MEDS: ASPIRIN 325 MG ENTERIC TABLET PO (08:20)
[2020-03-08] MEDS: DOCUSATE SODIUM 100 MG CAPSULE PO ×2 (08:20→16:57)
[2020-03-08] MEDS: CHOLECALCIFEROL 400 UNITS TABLET (VIT D) PO (08:20)
--- NOTE | 2020-03-08 11:00 | PC.NURSE ---
Therapy here to work with patient
[2020-03-08 15:27] VITALS: BP 117/49; PULSE 70; RESP 18; TEMP 36.9; O2SAT 95
--- NOTE | 2020-03-08 17:32 | PC.NURSE ---
Patient amb with 1 assist to bathroom then up in chair for supper. Patient fed self for supper. Patient sat upright in chair for supper. Patient taken to bathroom after supper then ambulated to bed per her request. Patient had small smear of BM. Call light and belongings within reach.
[2020-03-08] MEDS: SENNA/DOCUSATE SODIUM TABLET 2 TAB PO (20:52)
[2020-03-08] MEDS: ATORVASTATIN 40 MG TABLET PO (20:52)
[2020-03-08 23:16] VITALS: BP 141/65; PULSE 73; RESP 18; TEMP 36.8; O2SAT 95
[2020-03-09 08:00] VITALS: BP 136/20; PULSE 65; RESP 20; TEMP 37.1; O2SAT 95
[2020-03-09] MEDS: CALCIUM CARBONATE (OSCAL) 500 MG TABLET 250 MG PO (08:37)
[2020-03-09] MEDS: CHOLECALCIFEROL 400 UNITS TABLET (VIT D) PO (08:37)
[2020-03-09] MEDS: CLOPIDOGREL BISULFATE 75 MG TABLET PO (08:37)
[2020-03-09] MEDS: DOCUSATE SODIUM 100 MG CAPSULE PO ×2 (08:37→16:30)
[2020-03-09] MEDS: amLODIPine BESYLATE 5 MG TABLET 2.5 MG PO (08:38)
[2020-03-09] MEDS: ASPIRIN 325 MG ENTERIC TABLET PO (08:38)
--- NOTE | 2020-03-09 09:50 | PC.NURSE ---
PT TO PHYSICAL THERAPY ACCOMPANIES BY MEDICAL TECHNOLOGIST GENERALIST.
--- NOTE | 2020-03-09 11:57 | P.PNIM_ITS ---
Progress Note: A&P Assessment and Plan (1) CVA (cerebrovascular accident): Qualifiers: CVA mechanism: unspecified Qualified Code(s): I63.9 - Cerebral infarction, unspecified <ABBY DoughertyC - Last Filed: 03/09/20 12:40> Code(s): I63.9 - Cerebral infarction, unspecified <Pablo Reid APN-C - Last Filed: 03/09/20 12:40> Status: Acute <Pablo Reid APN-C - Last Filed: 03/09/20 12:40> Assessment and Plan: * Improving with PT/OT * Continue Plavix 75 mg daily, ASA 365 mg daily, Atorvastatin 40mg daily * Feed/Liquid recommendation: Regular, Level 7 / Thin (0) * Modified Barrium Swallow as noted under Radiology Results above. * Continue physical therapy and Occupational Therapy <Pablo Reid CIRCULAR KNITTER-C - Last Filed: 03/09/20 12:40> (2) Hypertension: Code(s): I10 - Essential (primary) hypertension <Pablo Reid APN-C - Last Filed: 03/09/20 12:40> Status: Acute <Pablo Reid APN-C - Last Filed: 03/09/20 12:40> Assessment and Plan: ? Continue to monitor ? VS as ordered ? Will adjust medication as needed Continue amlodipine <Pablo Reid APN-C - Last Filed: 03/09/20 12:40> (3) Hyperlipidemia: Code(s): E78.5 - Hyperlipidemia, unspecified <Pablo Reid CIRCULAR KNITTER-C - Last Filed: 03/09/20 12:40> Status: Acute <Pablo Reid APN-C - Last Filed: 03/09/20 12:40> Assessment and Plan: * Continue statins <Pablo Reid CIRCULAR KNITTER-C - Last Filed: 03/09/20 12:40> (4) Rhonchi at both lung bases: Code(s): R09.89 - Other specified symptoms and signs involving the circulatory and respiratory systems <Pablo Reid CIRCULAR KNITTER-C - Last Filed: 03/09/20 12:40> Status: Acute <Pablo Reid, CIRCULAR KNITTER-C - Last Filed: 03/09/20 12:40> Assessment and Plan: * Improved, Lungs clear today * Continue acapella * Continue as needed oxygen * Will continue to monitor <Pablo HazelCYNTHIA ledesma - Last Filed: 03/09/20 12:40> (5) Weakness: Code(s): R53.1 - Weakness <Pablo Gerardo CYNTHIA Reid - Last Filed: 03/09/20 12:40> Status: Acute <Pablo HazelCYNTHIA ledesma - Last Filed: 03/09/20 12:40> Assessment and Plan: ? Pt is doing well with PT/OT ? Patient working towards goal of being able to perform activities of daily living. ? Provide appropriate nutrition for healing and strength. ? Use appropriate interventions to prevent falls. Per case management: working on obtaining a walker for home use. ? Continue physical therapy/occupational therapy. <Pablo Gerardo CYNTHIA Reid L ast Filed: 03/09/20 12:40> Subjective Date/time seen: 03/09/20 11:57 Patient says that she is feeling good today. She admits that she is able to move her arm and her leg on the right side better than when she first got here. She admits that there is still some work to do. She request walker to be order ed for when she gets discharged later this week. And she is also requesting that her home meds have a refill on them so that she can schedule a driver's license examiner to help her pick those up. Patient denies any pain at this time. She says she is looking forward to going home. <Pablo NewmanCYNTHIA Smith - Last Filed: 03/09/20 12:40> Review of Systems Review of Systems: Narrative: As noted in subjective above. <CYNTHIA Dougherty - Last Filed: 03/09/20 12:40> Cardiovascular: Cardiovascular: Denies chest pain, Denies chest pain at rest and Denies chest pain with activity <CYNTHIA Dougehrty - Last Filed: 03/09/20 12:40>
--- NOTE | 2020-03-09 11:57 | PM.IMPN ---
Progress Note: A&P Assessment and Plan (1) CVA (cerebrovascular accident): Qualifiers: CVA mechanism: unspecified Qualified Code(s): I63.9 - Cerebral infarction, unspecified <Pablo ReidDILCIA-C - Last Filed: 03/09/20 12:40> Code(s): I63.9 - Cerebral infarction, unspecified <Pablo ReidDILCIA-C - Last Filed: 03/09/20 12:40> Status: Acute <ANISH DoughertyN-C - Last Filed: 03/09/20 12:40> Assessment and Plan: Improving with PT/OT Continue Plavix 75 mg daily, ASA 365 mg daily, Atorvastatin 40mg daily Feed/Liquid recommendation: Regular, Level 7 / Thin (0) Modified Barrium Swallow as noted under Radiology Results above. Continue physical therapy and Occupational Therapy <Pablo ReidDILCIA-C - Last Filed: 03/09/20 12:40> (2) Hypertension: Code(s): I10 - Essential (primary) hypertension <Pablo ReidDILCIA-C - Last Filed: 03/09/20 12:40> Status: Acute <Pablo ReidDILCIA-C - Last Filed: 03/09/20 12:40> Assessment and Plan: ? Continue to monitor ? VS as ordered ? Will adjust medication as needed Continue amlodipine <Pablo ReidDILCIA-C - Last Filed: 03/09/20 12:40> (3) Hyperlipidemia: Code(s): E78.5 - Hyperlipidemia, unspecified <Pablo ReidDILCIA-C - Last Filed: 03/09/20 12:40> Status: Acute <Pablo ReidDILCIA-C - Last Filed: 03/09/20 12:40> Assessment and Plan: Continue statins <Pablo HazelDILCIA ledesma-C - Last Filed: 03/09/20 12:40> (4) Rhonchi at both lung bases: Code(s): R09.89 - Other specified symptoms and signs involving the circulatory and respiratory systems <Pablo HazelDILCIA ledesma-C - Last Filed: 03/09/20 12:40> Status: Acute <Pablo ReidDILCIA-C - Last Filed: 03/09/20 12:40> Assessment and Plan: Improved, Lungs clear today Continue acapella Continue as needed oxygen Will continue to monitor <Pablo Gerardo CYNTHIA Reid - Last Filed: 03/09/20 12:40> (5) Weakness: Code(s): R53.1 - Weakness <Pablo Gerardo CYNTHIA Reid - Last Filed: 03/09/20 12:40> Status: Acute <Pablo Gerardo CYNTHIA Reid - Last Filed: 03/09/20 12:40> Assessment and Plan: ? Pt is doing well with PT/OT ? Patient working towards goal of being able to perform activities of daily living. ? Provide appropriate nutrition for healing and strength. ? Use appropriate interventions to prevent falls. Per case management: working on obtaining a walker for home use. ? Continue physical therapy/occupational therapy. <Pablo Gerardo CYNTHIA Reid - Last Filed: 03/09/20 12:40> Subjective Date/time seen: 03/09/20 11:57 Patient says that she is feeling good today. She admits that she is able to move her arm and her leg on the right side better than when she first got here. She admits that there is still some work to do. She request walker to be ordered for when she gets discharged later this week. And she is also requesting that her home meds have a refill on them so that she can schedule a wedding transportation driver to help her pick those up. Patient denies any pain at this time. She says she is looking forward to going home. <CYNTHIA Dougherty - Last Filed: 03/09/20 12:40> Review of Systems Review of Systems: Narrative: As noted in subjective above. <CYNTHIA Dougherty - Last Filed: 03/09/20 12:40> Cardiovascular: Cardiovascular: Denies chest pain, Denies chest pain at rest and Denies chest pain with activity <CYNTHIA Dougherty - Last Filed: 03/09/20 12:40> Musculoskeletal: Comments: Admits to right-sided weakness upper lower extremities. Patient also states that she has noticed improvement since she first was admitted. Patient also states that she has understanding she will need more work to get herself back to baseline. <Pablo Reid, BUSINESS QUALITY ASSURANCE ANALYST-C - Last Filed: 03/09/20 12:40> Exam Narrative: Exam Narrative:
--- NOTE | 2020-03-09 13:40 | PC.NURSE ---
OT WORKING WITH PATIENT IN ROOM.
--- NOTE | 2020-03-09 14:15 | PC.NURSE ---
Pt to Physical Therapy per wc accompanied by RACEBOOK WRITER.
--- NOTE | 2020-03-09 15:25 | PC.NURSE ---
Returned from therapy and in bed with HOB elevated
[2020-03-09 15:30] VITALS: BP 121/58; PULSE 77; RESP 18; TEMP 36.6; O2SAT 95
--- NOTE | 2020-03-09 16:30 | PC.NURSE ---
Up and out of bed, no assist needed, gait belt used and walker to ambulate to bathroom, SBA only, minimal help to assist in staying balanced while getting pants off and on, able to do own hygiene, then to chair for dinner,
--- NOTE | 2020-03-09 17:18 | PC.NURSE ---
Finished dinner and wanting to lay back down for a while, SBA and use of gait belt and walker, patient fed self
[2020-03-09] MEDS: ATORVASTATIN 40 MG TABLET PO (20:34)
[2020-03-09] MEDS: SENNA/DOCUSATE SODIUM TABLET 2 TAB PO (20:34)
[2020-03-10] VITALS: BP 138/63; PULSE 77; RESP 18; TEMP 36.6; O2SAT 95
[2020-03-10 05:21] LABS: Hematocrit 36.8 % (35.0-42.0); Hemoglobin 11.8 g/dL (11.7-13.8); Mean Corpuscular HGB Conc 32.1 g/dL (32.0-36.0); Mean Corpuscular Hemoglobin 29.1 pg (27.0-31.0); Mean Corpuscular Volume 90.9 fL (78.0-102.0); Mean Platelet Volume 8.5 fl (9.2-11.8); Platelet Count Result 206 K/mm3 (150-420); Red Blood Count 4.05 M/mm3 (4.20-5.40); Red Cell Distribution Width 13.8 % (11.6-14.4); White Blood Count 6.5 K/mm3 (4.8-10.8)
[2020-03-10 05:42] LABS: Anion Gap 8 mmol/L (8-16); Blood Urea Nitrogen 17 mg/dL (7-18); Carbon Dioxide 26 mmol/L (21-32); Chloride 104 mmol/L (98-108); Estimated CRCL calculation 50 ml/min; Estimated Glomerular Filt Rate > 60; Glucose 104 mg/dL (70-99); Osmolality Calculated 287 mOsm/kg (285-295); Potassium 3.8 mmol/L (3.5-5.1); Sodium 138 mmol/L (136-145)
[2020-03-10 07:10] VITALS: BP 130/61; PULSE 68; RESP 18; TEMP 36.1; O2SAT 95
--- NOTE | 2020-03-10 08:00 | PC.NURSE ---
eating breakfast, feeds self
[2020-03-10] MEDS: CLOPIDOGREL BISULFATE 75 MG TABLET PO (08:29)
[2020-03-10] MEDS: ASPIRIN 325 MG ENTERIC TABLET PO (08:29)
[2020-03-10] MEDS: DOCUSATE SODIUM 100 MG CAPSULE PO ×2 (08:29→16:55)
[2020-03-10] MEDS: amLODIPine BESYLATE 5 MG TABLET 2.5 MG PO (08:29)
[2020-03-10] MEDS: CALCIUM CARBONATE (OSCAL) 500 MG TABLET 250 MG PO (08:29)
[2020-03-10] MEDS: CHOLECALCIFEROL 400 UNITS TABLET (VIT D) PO (08:30)
--- NOTE | 2020-03-10 09:33 | PC.NURSE ---
Addendum entered by Flor Atwood RN 03/10/20 09:48: To therapy via wheel chair Original Note: To imaging via wheel chair
--- NOTE | 2020-03-10 10:13 | PC.NURSE ---
Returned from therapy via wheel chair
--- NOTE | 2020-03-10 10:58 | PC.NURSE ---
Assisted up from bed to chair
--- NOTE | 2020-03-10 13:00 | PC.NURSE ---
Resting in bed with HOB elevated, denies needs
[2020-03-10 16:00] VITALS: BP 116/63; PULSE 83; RESP 16; TEMP 36.9; O2SAT 95
[2020-03-10] MEDS: SENNA/DOCUSATE SODIUM TABLET 2 TAB PO (19:58)
[2020-03-10] MEDS: ATORVASTATIN 40 MG TABLET PO (19:59)
[2020-03-11] VITALS: BP 135/62; PULSE 69; RESP 18; TEMP 36.6; O2SAT 95
--- NOTE | 2020-03-11 00:05 | PC.NURSE ---
SBA with use of walker and gait belt, to bathroom, unsteady balance first noted, once moving stabilized, returned to bed, no injury, side rails up and call light in reach
--- NOTE | 2020-03-11 02:20 | PC.NURSE ---
Up to bathroom, tolerated well, balance improved, SBA with use of gait belt and walker
[2020-03-11 04:36] VITALS: PULSE 69; RESP 18; O2SAT 95
--- NOTE | 2020-03-11 06:23 | PC.NURSE ---
Resting in bed, denies needs
[2020-03-11 08:00] VITALS: PULSE 64; RESP 16; TEMP 36.6; O2SAT 98
[2020-03-11] MEDS: CHOLECALCIFEROL 400 UNITS TABLET (VIT D) PO (08:33)
[2020-03-11] MEDS: ASPIRIN 325 MG ENTERIC TABLET PO (08:33)
[2020-03-11] MEDS: amLODIPine BESYLATE 5 MG TABLET 2.5 MG PO (08:33)
[2020-03-11] MEDS: CALCIUM CARBONATE (OSCAL) 500 MG TABLET 250 MG PO (08:35)
[2020-03-11] MEDS: CLOPIDOGREL BISULFATE 75 MG TABLET PO (08:36)
[2020-03-11] MEDS: DOCUSATE SODIUM 100 MG CAPSULE PO ×2 (08:36→17:16)
[2020-03-11 16:00] VITALS: BP 124/78; PULSE 84; RESP 18; TEMP 36.6; O2SAT 96
[2020-03-11] MEDS: ATORVASTATIN 40 MG TABLET PO (21:01)
[2020-03-11] MEDS: SENNA/DOCUSATE SODIUM TABLET 2 TAB PO (21:01)
[2020-03-11 23:29] VITALS: BP 129/57; PULSE 75; RESP 20; TEMP 36.4; O2SAT 95
--- NOTE | 2020-03-12 02:29 | PC.NURSE ---
pt sleeping, no evidence of distress noted, respirations even and regular
[2020-03-12 07:10] VITALS: BP 135/53; PULSE 65; RESP 18; TEMP 36.7; O2SAT 95
--- NOTE | 2020-03-12 07:10 | PC.NURSE ---
Up to chair with use of walker and gait belt, SBA only, tolerated well
--- NOTE | 2020-03-12 08:08 | PM.DS ---
DS: Admitting Diagnosis Admitting Diagnosis Admitting Diagnosis: cerebrovascular accident hypertension hyperlipidemia generalized weakness DS: Discharge Diagnosis Discharge Diagnosis (1) CVA (cerebrovascular accident): Qualifiers: CVA mechanism: unspecified Qualified Code(s): I63.9 - Cerebral infarction, unspecified Code(s): I63.9 - Cerebral infarction, unspecified Status: Acute Assessment and Plan: Improving with PT/OT, Continue Plavix 75 mg daily, ASA 365 mg daily, Atorvastatin 40mg daily, Continue physical therapy and Occupational Therapy with home health (2) Hypertension: Code(s): I10 - Essential (primary) hypertension Status: Acute Assessment and Plan: Has been controlled (3) Hyperlipidemia: Code(s): E78.5 - Hyperlipidemia, unspecified Status: Acute Assessment and Plan: Continue statins (4) Rhonchi at both lung bases: Code(s): R09.89 - Other specified symptoms and signs involving the circulatory and respiratory systems Status: Acute Assessment and Plan: Improved, Lungs remain clear today, Continue acapella at home as needed (5) Weakness: Code(s): R53.1 - Weakness Status: Acute Assessment and Plan: ? Pt is doing well with PT/OT, Continue physical therapy and Occupational Therapy with home health. DS: Summary Time Spent with Patient Time attestation: Total time spent providing and/or coordinating discharge services: 30 minutes. Exam Narrative: Exam Narrative: Patient states that she is feeling like she is getting her strength back still needs to work with the right arm and the right foot. Patient states that she does have home health that will be helping her at home. Patient has a positive attitude positive outlook. Resp: Effort & Inspection: normal respiratory effort Auscultation: clear to auscultation bilaterally and no rhonchi Cardio: Jugular venous distension: no JVD Rate: regular rate Rhythm: regular rhythm Heart sounds: S1 normal heart sound present and S2 normal heart sound present GI: GI Palp: No abdominal tenderness Auscultation: normal bowel sounds Skin: Other: no peripheral edema Neuro: General: oriented to person, oriented to place and oriented to time ( and events) Extrem: Other: Strength improving in the right arm wrist fingers but the fingers are still the weakest on the right side. Patient is getting better raising her right foot but still very weak. Discharge Plan Discharge Attending physician on discharge: Jitendra Casas Discharging Clinician: Pablo Reid Patient Disposition: Home Health Service Activity: no driving and other - see discharge instructions Diet: heart healthy Discharge Instructions: [facility] TO FOLLOW AT DISCHARGE: PHONE: NURSING PLEASE FAX ORDER AND DISCHARGE INSTRUCTIONS TO - Patient Instructions: Antibiotic Form Stand Alone Forms: General Discharge Information Follow-up/Referrals: Adithya Black MD [Primary Care Provider] - Discharge Medications: New alum-mag hydroxide-simeth [Mag-Al Plus] 200-200-20 mg/5 mL Suspension 30 ml PO QID PRN (Reason: Dyspepsia) Qty: 20 RF: 0 cholecalciferol (vitamin D3) [Vitamin D3] 10 mcg (400 unit) Tablet 400 units PO QAM Qty: 30 RF: 0 calcium carbonate [Oyster Shell Calcium 500] 500 mg calcium (1,250 mg) Tablet 250 mg PO DAILY@0800 Qty: 30 RF: 0 clopidogrel 75 mg Tablet 75 mg PO QAM Qty: 30 RF: 0 Continued acetaminophen 325 mg Tablet 650 mg PO Q4H PRN (Reason: Fever Or Pain) Qty: 30 RF: 0 aspirin 325 mg Tablet 325 mg PO DAILY Qty: 30 RF: 0 atorvastatin 40 mg Tablet 40 mg PO HS Qty: 30 RF: 0 bisacodyl 10 mg Suppository 10 mg AR QPM PRN (Reason: Constipation) Qty: 30 RF: 0 polyethylene glycol 3350 17 gram Powder In Packet 17 g PO DAILY PRN (Reason: Constipation) Qty: 10 RF: 0
[2020-03-12] MEDS: CALCIUM CARBONATE (OSCAL) 500 MG TABLET 250 MG PO (09:29)
[2020-03-12] MEDS: ASPIRIN 325 MG ENTERIC TABLET PO (09:29)
[2020-03-12] MEDS: CLOPIDOGREL BISULFATE 75 MG TABLET PO (09:30)
[2020-03-12] MEDS: CHOLECALCIFEROL 400 UNITS TABLET (VIT D) PO (09:30)
[2020-03-12] MEDS: DOCUSATE SODIUM 100 MG CAPSULE PO (09:30)
[2020-03-12] MEDS: amLODIPine BESYLATE 5 MG TABLET 2.5 MG PO (09:30)
--- NOTE | 2020-03-12 10:20 | PC.NURSE ---
REturned from therapy, to bed per patient wishes,
--- NOTE | 2020-03-12 11:13 | PC.NURSE ---
SBA up to chair for lunch, voided prior to getting to chair, SBA only, able to do own hygiene
--- NOTE | 2020-03-12 14:05 | PC.NURSE ---
Patient discharged via wheelchair with personal belongings returned. Discharge instructions provided with no further questions; patient verbalized understanding. Transportation provided by [facility] [place].
--- NOTE | 2020-03-13 08:31 | PCOTNOTE ---
Patient has been discharged from skilled OT services and returned home. Patient will be receiving assistance within the home. See last treatment note for level of function at discharge. MS
--- NOTE | 2020-03-13 13:48 | PC.NURSE ---
Discharge call back [phone] Home Health came this morning to help her, she stated shes frustrated with herself but knows getting shes getting stronger.
== END 2020-03-12 14:05 | disposition home health service (06) | DRG 57 ==
PROVIDERS: Nurse Practitioner Family; Admitting Provider Family Medicine; PCP Family Medicine; Visit Provider Family Medicine
DX: I69.351 Hemiplegia and hemiparesis following cerebral infarction affecting right dominant side (principal); E78.5 Hyperlipidemia, unspecified; I10 Essential (primary) hypertension; M81.0 Age-related osteoporosis without current pathological fracture; R09.89 Other specified symptoms and signs involving the circulatory and respiratory systems; Z87.891 Personal history of nicotine dependence
CPT/HCPCS: 36415; 80048; 80053; 85027; 92523; 92610; 92611; 97110; 97161; 97165; 97530; 97535; A9270; J1650

== ENCOUNTER 2020-05-05 10:03 | Outpatient (RCR) | payer MEDICARE, MEDICAID, SELFPAY ==
--- NOTE | 2020-05-05 11:00 | PTOPEVAL ---
Thank you for referring Fannie Izquierdo to [facility].? The patient is scheduled to be seen for therapy? ____x/week for ___ weeks. Please review, sign, date and return this plan of care ANNE-MARIE. I agree with and certify that the following plan of care is medically necessary. Referring Physician Date Admitting Provider: Attending Provider: Adithya Black MD Referring Provider: *PT Outpatient Evaluation Start: 05/05/20 10:11 Freq: Status: Active Protocol: Document 05/05/20 10:10 [facility] (Rec: 05/05/20 11:00 [facility] [id number]) Therapy Assessment Status Assessment Status Assessment Status Evaluation Outpatient Past Medical History Neurological History Hx Cerebrovascular Accident (CVA) Yes: with right side weakness. Cardiovascular History Hx Hypercholesterolemia Yes Hx Hypertension Yes Respiratory History Hx Respiratory Disorders No Significant History Gastrointestinal History Hx Gastrointestinal Disorders No Significant History Genitourinary History Hx Urinary Tract Infection Yes Musculoskeletal History Hx Arthritis Yes Hx Osteoporosis Yes Hematological History Hx Anemia Yes Endocrine History Hx Endocrine Disorders No Significant History HEENT History Hx Cataracts Yes Integumentary History Hx Skin Disorders No Significant History Reproductive History Hx Hysterectomy Yes: partial Psychosocial History Hx Anxiety Yes Hx Depression Yes Pain History History of Any Previous or Ongoing No Significant History Instance of Pain Anesthesia History Hx Anesthesia Reactions No Significant History Evaluation Information Problem Diagnosis weakness, CVA Onset 05/01/20 Subjective Information patient reports she is coming Query Text:As Reported By Patient/ to therapy for weakness Family following a stroke. she was admitted to [facility] bed here in the hospital for about 2 weeks. she then went home ( has assist 2 hours out of the day) and has been having home health therapy for about 2 months. she reports she does not believe she had a stroke. she believes she had bad food poisoning and maybe a small stroke for only a few days. she reports she has trouble with letting go of her walker (to
--- NOTE | 2020-05-12 11:58 | OTOPEVAL ---
Thank you for referring Fannie Izquierdo to [facility][Note 3].? The patient is scheduled to be seen for therapy? ____x/week for ___ weeks. Please review, sign, date and return this plan of care ANNE-MARIE. I agree with and certify that the following plan of care is medically necessary. Referring Physician Date Admitting Provider: Attending Provider: Adithya Black MD Referring Provider: *OT Outpatient Evaluation Start: 05/12/20 10:39 Freq: Status: Active Protocol: Document 05/12/20 10:39 [facility] (Rec: 05/12/20 11:54 [facility] [id number]) Therapy Assessment Status Assessment Status Assessment Status Evaluation Outpatient Past Medical History Neurological History Hx Cerebrovascular Accident (CVA) Yes: with right side weakness. Cardiovascular History Hx Hypercholesterolemia Yes Hx Hypertension Yes Respiratory History Hx Respiratory Disorders No Significant History Gastrointestinal History Hx Gastrointestinal Disorders No Significant History Genitourinary History Hx Urinary Tract Infection Yes Musculoskeletal History Hx Arthritis Yes Hx Osteoporosis Yes Hematological History Hx Anemia Yes Endocrine History Hx Endocrine Disorders No Significant History HEENT History Hx Cataracts Yes Integumentary History Hx Skin Disorders No Significant History Reproductive History Hx Hysterectomy Yes: partial Psychosocial History Hx Anxiety Yes Hx Depression Yes Pain History History of Any Previous or Ongoing No Significant History Instance of Pain Anesthesia History Hx Anesthesia Reactions No Significant History Evaluation Information Problem Diagnosis CVA, R side weakness Onset 01/31/20 Subjective Information Patient reports that she had a Query Text:As Reported By Patient/ CVA in January and was in Family inpatient rehab followed by swing bed at this facility and returned home where she was receiving home health services . Patient currently has 2 hours/day of assistance in the home. Patient reports that they assist with cooking, cleaning, and running errands. Patient is able to perform sponge bathing without assist but receives assist with bathing. Patient reports that she continues to have weakness i
--- NOTE | 2020-06-11 13:10 | PTOPEVAL ---
Thank you for referring Fannie Iqzuierdo to [facility].? The patient is scheduled to be seen for therapy? ____x/week for ___ weeks. Please review, sign, date and return this plan of care ANNE-MARIE. I agree with and certify that the following plan of care is medically necessary. Referring Physician Date Admitting Provider: Attending Provider: Adithya Black MD Referring Provider: *PT Outpatient Evaluation Start: 05/05/20 10:11 Freq: Status: Active Protocol: Document 06/11/20 10:00 [facility] (Rec: 06/11/20 13:07 [facility] [id number]) Therapy Assessment Status Assessment Status Assessment Status Re-evaluation Outpatient Past Medical History Neurological History Hx Cerebrovascular Accident (CVA) Yes: with right side weakness. Cardiovascular History Hx Hypercholesterolemia Yes Hx Hypertension Yes Respiratory History Hx Respiratory Disorders No Significant History Gastrointestinal History Hx Gastrointestinal Disorders No Significant History Genitourinary History Hx Urinary Tract Infection Yes Musculoskeletal History Hx Arthritis Yes Hx Osteoporosis Yes Hematological History Hx Anemia Yes Endocrine History Hx Endocrine Disorders No Significant History HEENT History Hx Cataracts Yes Integumentary History Hx Skin Disorders No Significant History Reproductive History Hx Hysterectomy Yes: partial Psychosocial History Hx Anxiety Yes Hx Depression Yes Pain History History of Any Previous or Ongoing No Significant History Instance of Pain Anesthesia History Hx Anesthesia Reactions No Significant History Evaluation Information Problem Diagnosis CVA, R side weakness Subjective Information see documentation by Nancy Query Text:As Reported By Patient/ TOM Keith Family patient reports she is improving but still struggles with balance, ambulation, and progression to a cane. Pain Assessment Timing of Pain Assessment Timing of Pain Assessment Assessment Self Report Self Report Pain Level 0 Pain Score Pain Score 0: Self Report Lower Extremity Range of Motion General Lower Extremity Range of Motion Gross Lower Extremity Range of Motion 5 degrees PROM L=R ankle DF Comments patient displays active motiona against gravity of the R ankle. however, she does not achieve full rom or 0 degrees of ankle DF. patient is wearing an AFO for
--- NOTE | 2020-07-14 08:01 | PCOTNOTE ---
OT spoke with patient via phone and patient reports that things are going great overall. She feels that she is getting better each day. Patient states that she is able to do more in the kitchen, specifically make herself breakfast as well as sponge bathe. Patient also reports that she is able to now sign her name and it is legible. Patient reports independence with home exercise program. Patient agrees to discharge from skilled OT services at this time, discharge skilled OT services. MS
--- NOTE | 2020-08-11 12:10 | PTOPEVAL ---
Thank you for referring Fannie Izquierdo to [facility].? The patient is scheduled to be seen for therapy? ____x/week for ___ weeks. Please review, sign, date and return this plan of care ANNE-MARIE. I agree with and certify that the following plan of care is medically necessary. Referring Physician Date Admitting Provider: Attending Provider: Adithya Black MD Referring Provider: *PT Outpatient Evaluation Start: 05/05/20 10:11 Freq: Status: Discharge Protocol: Document 07/09/20 08:50 [facility] (Rec: 07/09/20 10:00 [facility] [id number]) Outpatient Past Medical History Neurological History Hx Cerebrovascular Accident (CVA) Yes: with right side weakness. Cardiovascular History Hx Hypercholesterolemia Yes Hx Hypertension Yes Respiratory History Hx Respiratory Disorders No Significant History Gastrointestinal History Hx Gastrointestinal Disorders No Significant History Genitourinary History Hx Urinary Tract Infection Yes Musculoskeletal History Hx Arthritis Yes Hx Osteoporosis Yes Hematological History Hx Anemia Yes Endocrine History Hx Endocrine Disorders No Significant History HEENT History Hx Cataracts Yes Integumentary History Hx Skin Disorders No Significant History Reproductive History Hx Hysterectomy Yes: partial Psychosocial History Hx Anxiety Yes Hx Depression Yes Pain History History of Any Previous or Ongoing No Significant History Instance of Pain Anesthesia History Hx Anesthesia Reactions No Significant History Evaluation Information Problem Diagnosis CVA, R side weakness Onset 01/31/20 Subjective Information patient reports she feels Query Text:As Reported By Patient/ good this date. Family Pain Assessment Timing of Pain Assessment Timing of Pain Assessment Assessment Self Report Self Report Pain Level 0 Pain Score Pain Score 0: Self Report Lower Extremity Muscle Strength Testing Hip Strength Right Hip Flexion Strength 3+ Fair + Hip Extension Strength 3+ Fair + Hip Abduction Strength 3+ Fair + Left Hip Flexion Strength 4+ Good + Hip Extension Strength 4+ Good + Hip Abduction Strength 4+ Good + Knee Strength Right Knee Flexion Strength 4 Good Knee Extension Strength 4+ Good + Left Knee Flexion Strength 5 Normal Knee Extension Strength 5 Normal Ankle Strength Left Ankle Dorsiflexion Strength 5 Normal Ankle Plantarflexion Strength 4+ Good + Right Ankle Dorsiflexion Strength 3- Fair - Ankle P
== END 2020-08-11 23:59 | disposition home or self-care (01) ==
LOC: CHSPT 10:03
PROVIDERS: PCP Family Medicine; Visit Provider Family Medicine
DX: R53.1 Weakness (principal)
CPT/HCPCS: 97110; 97112; 97161; 97165; 97530

== ENCOUNTER 2021-04-29 09:09 | Outpatient (NON) | payer MEDICARE, SELFPAY ==
[2021-04-29 09:19] LABS: Basophils Absolute Auto 0.04 K/mm3 (0.00-0.10); Basophils Percent Auto 0.8 % (0.0-1.0); Eosinophils Absolute Auto 0.16 K/mm3 (0.02-0.50); Hematocrit 40.8 % (35.0-42.0); Hemoglobin 13.2 g/dL (11.7-13.8); Immature Granulocyte Absolute 0.01 K/mm3 (0.00-0.00); Immature Granulocyte Percent A 0.2 % (0.0-0.0); Lymphocytes Absolute Auto 1.68 K/mm3 (1.10-4.50); Lymphocytes Percent Auto 31.6 % (18.0-42.0); Mean Corpuscular HGB Conc 32.4 g/dL (32.0-36.0); Mean Corpuscular Hemoglobin 27.8 pg (27.0-31.0); Mean Corpuscular Volume 86.1 fL (78.0-102.0); Mean Platelet Volume 8.6 fl (9.2-11.8); Monocytes Absolute Auto 0.43 K/mm3 (0.10-0.90); Monocytes Percent Auto 8.1 % (2.0-11.0); Neutrophils Percent Auto 56.3 % (50.0-70.0); Platelet Count Result 203 K/mm3 (150-420); Red Blood Count 4.74 M/mm3 (4.20-5.40); Red Cell Distribution Width 15.9 % (11.6-14.4); White Blood Count 5.3 K/mm3 (4.8-10.8)
[2021-04-29 09:50] LABS: Alanine Aminotransferase 21 U/L (14-59); Albumin Level 3.7 g/dL (3.4-5.0); Alkaline Phosphatase 74 U/L (46-116); Anion Gap 10 mmol/L (8-16); Aspartate Amino Transferase 10 U/L (15-37); Bilirubin,Total 0.5 mg/dL (0.00-1.00); Blood Urea Nitrogen 13 mg/dL (7-18); Calcium 9.1 mg/dL (8.5-10.1); Carbon Dioxide 29 mmol/L (21-32); Chloride 104 mmol/L (98-108); Cholesterol 175 mg/dL (0-200); Estimated Glomerular Filt Rate > 60; Glucose 91 mg/dL (70-99); HDL Direct 89 mg/dL (40-60); LDL Cholesterol Calculated 69 mg/dL (<130); Osmolality Calculated 296 mOsm/kg (285-295); Potassium 3.9 mmol/L (3.5-5.1); Sodium 143 mmol/L (136-145); Thyroid Stimulating Hormone Reflex 2.77 u/IU/mL (0.36-3.74); Triglycerides 83 mg/dL (0-150)
== END 2021-04-29 09:10 | disposition home or self-care (01) ==
LOC: CHSLAB 09:11
PROVIDERS: Visit Provider Family Medicine
DX: E78.5 Hyperlipidemia, unspecified (principal); I10 Essential (primary) hypertension
CPT/HCPCS: 36415; 80053; 80061; 84443; 85025